=== PATIENT | female | born 1950 | race Caucasian/White ===

== ENCOUNTER 2022-03-28 09:23 | Emergency (ER) | payer MEDICARE ==
[~2022-03-28] VITALS: Ht 165.1 cm; Wt 70.3 kg
[2022-03-28 10:24] LABS: BASOPHILS ABSOLUTE AUTO 0.04 K/mm3 (0.00-0.23); BASOPHILS PERCENT AUTO 0 % (0-2); EOSINOPHILS ABSOLUTE AUTO 0.01 K/mm3 (0.00-0.68); EOSINOPHILS PERCENT AUTO 0 % (0-6); Hemoglobin 10.1 g/dL (11.5-16.0); IMMATURE GRAN ABSOLUTE AUTO 0.22 K/mm3 (0.00-0.10); IMMATURE GRAN PERCENT AUTO 2 % (0-1); LYMPHOCYTES ABSOLUTE AUTO 0.62 K/mm3 (0.84-5.20); LYMPHOCYTES PERCENT AUTO 4 % (21-46); MONOCYTES ABSOLUTE AUTO 1.36 K/mm3 (0.16-1.47); MONOCYTES PERCENT AUTO 10 % (4-13); Mean Corpuscular HGB 30.1 pg (26.0-34.0); Mean Corpuscular HGB Conc 33.7 g/dL (31.5-36.5); Mean Corpuscular Volume 89 fL (80-100); Mean Platelet Volume 11.1 fL (9.1-12.4); NEUTROPHILS ABSOLUTE AUTO 11.79 K/mm3 (1.96-9.15); NEUTROPHILS PERCENT AUTO 84 % (41-73); Platelet Count 372 K/mm3 (150-400); RDW Coefficient Variation 17.4 % (11.7-14.2); RDW Standard Deviation 56.6 fL (35.1-46.3); Red Blood Cell Count 3.36 M/mm3 (3.80-5.20); White Blood Cell Count 14.04 K/mm3 (4.00-11.30)
[2022-03-28 10:43] LABS: Albumin, Blood 1.8 g/dL (3.4-5.0); Albumin/Globulin Ratio 0.3 (0.8-1.8); Bilirubin, Direct 4.1 mg/dL (0.0-0.3); Bilirubin, Indirect 0.8 mg/dL (0.1-0.7); Bilirubin, Total 4.9 mg/dL (0.1-1.0); Bun/Creatinine Ratio 22.6 (12.0-20.0); Calcium, Blood 8.8 mg/dL (8.5-10.1); Creatinine, Blood 0.58 mg/dL (0.40-1.00); Globulin, Blood 5.2 g/dL (2.2-4.0); Potassium, Blood 4.1 mmol/L (3.5-5.5)
== END 2022-03-28 12:33 | disposition home or self-care (01) ==
LOC: ER 09:23
PROVIDERS: Physician Assistant
DX: R10.11 Right upper quadrant pain (principal); C22.9 Malignant neoplasm of liver, not specified as primary or secondary; Z88.8 Allergy status to other drugs, medicaments and biological substances
CPT/HCPCS: 36415; 80048; 80076; 83690; 85025; J1170

== ENCOUNTER 2022-04-16 13:34 | Observation (INO) | payer MEDICARE ==
[~2022-04-16] VITALS: Ht 165.1 cm; Wt 74.8 kg
[~2022-04-16 13:34] MED LIST: CEFD300 PO
[2022-04-16 14:28] LABS: Albumin, Blood 1.5 g/dL (3.4-5.0); Albumin/Globulin Ratio 0.3 (0.8-1.8); Bilirubin, Total 4.1 mg/dL (0.1-1.0); Calcium, Blood 8.5 mg/dL (8.5-10.1); Creatinine, Blood 0.75 mg/dL (0.40-1.00); Globulin, Blood 4.9 g/dL (2.2-4.0); Potassium, Blood 4.1 mmol/L (3.5-5.5); Total Protein, Blood 6.4 g/dL (6.4-8.2)
[2022-04-16 14:34] LABS: BASOPHILS ABSOLUTE AUTO 0.06 K/mm3 (0.00-0.23); BASOPHILS PERCENT AUTO 0 % (0-2); EOSINOPHILS ABSOLUTE AUTO 0.11 K/mm3 (0.00-0.68); EOSINOPHILS PERCENT AUTO 1 % (0-6); Hematocrit 32.3 % (33.0-51.0); Hemoglobin 10.2 g/dL (11.5-16.0); IMMATURE GRAN PERCENT AUTO 1 % (0-1); LYMPHOCYTES PERCENT AUTO 9 % (21-46); MONOCYTES PERCENT AUTO 8 % (4-13); Mean Corpuscular HGB Conc 31.6 g/dL (31.5-36.5); Mean Corpuscular Volume 95 fL (80-100); Mean Platelet Volume 10.8 fL (9.1-12.4); NEUTROPHILS PERCENT AUTO 81 % (41-73); Platelet Count 481 K/mm3 (150-400); RDW Coefficient Variation 22.6 % (11.7-14.2)
[2022-04-16 14:53] LABS: IMMATURE GRAN ABSOLUTE AUTO 0.16 K/mm3 (0.00-0.10); LYMPHOCYTES ABSOLUTE AUTO 1.17 K/mm3 (0.84-5.20); MONOCYTES ABSOLUTE AUTO 1.06 K/mm3 (0.16-1.47); NEUTROPHILS ABSOLUTE AUTO 11.16 K/mm3 (1.96-9.15)
[2022-04-16 20:15] LABS: Base Excess Venous -1.1 mmol/L; Bicarbonate Venous 22.9 mmol/L (24.0-30.0); PCO2 Venous 48.2 mmHg (38-42); pH Blood Venous 7.32 (7.34-7.37)
[2022-04-16 20:37] LABS: Source, Urine Straight Cath
[2022-04-16 20:46] LABS: Blood, Urine Neg (Neg); Glucose Qualitative, Urine Neg (Neg); Ketones, Urine 1+ (Neg); Leukocyte Esterase, Urine 1+ (Neg); Nitrite, Urine Neg (Neg); Protein, Urine 2+ (Neg); Specific Gravity, Urine 1.015 (1.003-1.022); Urobilinogen, Urine 3+ (Normal)
[2022-04-16 20:46] LABS: Influenza A, PCR NEGATIVE (NEGATIVE); Influenza B, PCR NEGATIVE (NEGATIVE); Resp Syncytial Virus, PCR NEGATIVE (NEGATIVE); SARS-Cov-2 (COVID-19) PCR, MMC NEGATIVE (NEGATIVE)
[2022-04-16 20:56] LABS: Appearance, Urine Hazy (Clear); Bilirubin, Urine 2+ (Neg); Color, Urine Amber (P-Yellow)
[2022-04-16 20:58] LABS: Amorphous Light (0-Heavy); Bacteria Many /hpf; Hyaline Casts 0-2 /lpf (0-2); Mucus Light (0-Heavy); Red Blood Cells, Urine 0-2 /hpf (0-2); Squamous Epithelial Cells Rare /hpf (Few); Transitional Epithelial Cells Rare /hpf (0-Rare); White Blood Cells, Urine 0-2 /hpf (0-5)
[2022-04-16 21:03] LABS: Thyroid Stimulating Hormone 3.64 uIU/mL (0.360-4.800)
[2022-04-16 21:07] LABS: Magnesium, Blood 2.2 mg/dL (1.6-2.4)
[2022-04-17 00:57] VITALS: BP 93/60
[2022-04-17 03:39] VITALS: BP 107/61
[2022-04-17 04:58] LABS: Hematocrit 27.8 % (33.0-51.0); Hemoglobin 9.1 g/dL (11.5-16.0); Mean Corpuscular HGB 30.4 pg (26.0-34.0); Mean Corpuscular HGB Conc 32.7 g/dL (31.5-36.5); Mean Corpuscular Volume 93 fL (80-100); Mean Platelet Volume 11.4 fL (9.1-12.4); Platelet Count 374 K/mm3 (150-400); RDW Coefficient Variation 22.3 % (11.7-14.2); RDW Standard Deviation 73.3 fL (35.1-46.3); Red Blood Cell Count 2.99 M/mm3 (3.80-5.20); White Blood Cell Count 10.83 K/mm3 (4.00-11.30)
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
[2022-04-17 05:43] LABS: Source, Urine Voided
[2022-04-17 05:58] LABS: Appearance, Urine Clear (Clear); Blood, Urine Neg (Neg); Color, Urine Yellow (P-Yellow); Glucose Qualitative, Urine Neg (Neg); Ketones, Urine Neg (Neg); Leukocyte Esterase, Urine 1+ (Neg); Nitrite, Urine Neg (Neg); Protein, Urine 2+ (Neg); Urobilinogen, Urine 2+ (Normal)
[2022-04-17 06:54] LABS: Bilirubin, Urine 2+ (Neg)
[2022-04-17 06:57] LABS: Bun/Creatinine Ratio 30.5 (12.0-20.0); Calcium, Blood 8.3 mg/dL (8.5-10.1); Creatinine, Blood 0.72 mg/dL (0.40-1.00); Potassium, Blood 4.2 mmol/L (3.5-5.5)
[2022-04-17 06:59] LABS: Bacteria Not Seen /hpf; Mucus Light (0-Heavy); Red Blood Cells, Urine Not Seen /hpf (0-2); Squamous Epithelial Cells Few /hpf (Few); White Blood Cells, Urine 0-2 /hpf (0-5)
[2022-04-17 08:15] VITALS: BP 107/57
[2022-04-17] MEDS ORDERED: GABA400 PO (10:30)
[2022-04-17] MEDS ORDERED: CYCL10 PO (10:31)
[2022-04-17] MEDS ORDERED: ATEN25 PO (10:33)
[2022-04-17] MEDS ORDERED: AMLO5 PO (10:36)
[2022-04-17] MEDS ORDERED: ATOR40TA PO (10:36)
[2022-04-17] MEDS ORDERED: Oxybutynin Chlo10 MG PO (10:37)
[2022-04-17] MEDS ORDERED: MORP30ER PO (10:37)
[2022-04-17] MEDS ORDERED: OXYC5 PO (10:38)
[2022-04-17] MEDS ORDERED: ONDA4 PO (10:55)
[2022-04-17] MEDS ORDERED: GABA100 PO (11:01)
[2022-04-17 15:14] VITALS: BP 98/51
--- NOTE | 2022-04-17 15:20 | NUR ---
Pt visit earlier this afternoon. Pt resting in bed and is A&OX4. Listened as Pt reports having liver cancer and states cancer is not curative. Plan is to see Dr Syed for Immuno therapy. She reports living at home alone but family is over most of the time assisting with needs. Son reports Pt has times where she doesn't require much assistance and times when she needs help with standing up getting to wheel chair. Pt's grandson, son, daughter in law at bedside. Pt's daughter on speaker via family cell phone. Answered questions regarding Advanced Illness Management Program. Offered therapeutic conversation and validated concerns. Pt and family agreeable for AIM program. Discussed code status wishes. Educated on life sustaining measures including risk factors and implications of CPR. Pt reports wishes are for full code. Family expresses appreciation and report no other concerns at this time. Spoke with RN Arcenio Rouse and relayed Pt's wishes for AIM program. Palliative Care will remain available
--- NOTE | 2022-04-17 15:21 | NUR ---
Spiritual care visit conducted. I visited with the family and patient several times this day. I met with patient's son, RICK out in the lobby for over 30 minutes. He talked about the loved ones that he has loss, the beautiful relationship he has with his mother and the depth of character, kindness and generosity that she possesses. We talked about how he is processing her new diagnosis and his thoughts on anglican, family and life. I then return later to patient's and talk with the patient as we discuss a meaningful , dying and her concerns for the family. I also talk with patient family later in the hallway. I provided therapeutic listening, grief support, spiritual application counselor and prayer (on my knee holding pt's hand). Patient and family responded well and showed signs of being comforted and encouraged. I will continue to remain available to pateint and family.
--- NOTE | 2022-04-17 16:34 | NUR ---
WOUND CARE PT WITH TWO UNSTAGEABLE PI TO COCCYX. CLEANSE NS, PAT DRY, MEDIHONEY ALGINATE TO WOUND BED, COVER BORDERED FOAM. CHANGE 3X WEEK, SOILED OR DISLODGED BL HEELS BOGGY WITH SUSPECTED DEEP TISSUE INJURY TO R HEEL. PAINT DAILY WITH BETADINE, FLOAT HEELS. EGGCRATE FOR MATRESS
--- NOTE | 2022-04-17 19:22 | NUR ---
SHIFT SUMMARY FAMILY IN ROOM AT ALL TIMES WITH PT. PTS VOICE VERY QUIET AND AT TIMES HARD TO HEAR. LE'S WITH EDEMA WITH L WORSE THAN R. HEEL PROTECTORS IN PLACE AND LE'S ELEVATED ON PILLOWS. ENCOURAGED TO TURN SIDE TO SIDE TO REDUCE PRESSURE TO COCCYC. NEW ORDER MED TO COCCYX APPLIED THIS EVENING DUE TO DOZING THIS AFTERNOON. EGG CRATE APPLIED TO BED WHILE UP ON BSC. MED REC UPDATED AND FOUND PT TO TAKE OXY AND MS CONTIN ORDERED AND GIVEN. L KNEE IS VERY PAINFUL DESPITE LIDOCAINE AND PAIN MEDS. HURTS MORE WHEN BENT.
[2022-04-17 20:23] VITALS: BP 104/62
--- NOTE | 2022-04-18 03:01 | NUR ---
END OF SHIFT SUMMERY. PT ALERT AND ORIENTED BUT SLEEPY, PT HAD SIMON BUSY DAY AND WAS VERY TIRED. PTS SON AT BEDSIDE STAYING THE NIGHT WITH PT. PT MEDICATED WITH SCEDUALED PAIN MED AND SEEMS TO BE RESTING WELL. PT S FAMILY VERY SUPPORTIVE. CALL LIGHT IN REACH BED ALARM ON.
[2022-04-18 04:36] VITALS: BP 121/82
[2022-04-18 04:40] VITALS: BP 113/73
[2022-04-18 05:45] VITALS: BP 118/72
[2022-04-18 06:15] LABS: Hematocrit 32.6 % (33.0-51.0); Hemoglobin 10.7 g/dL (11.5-16.0); Mean Corpuscular HGB 30.4 pg (26.0-34.0); Mean Corpuscular HGB Conc 32.8 g/dL (31.5-36.5); Mean Corpuscular Volume 93 fL (80-100); Mean Platelet Volume 11.1 fL (9.1-12.4); Platelet Count 506 K/mm3 (150-400); RDW Coefficient Variation 23.2 % (11.7-14.2); RDW Standard Deviation 74.7 fL (35.1-46.3); Red Blood Cell Count 3.52 M/mm3 (3.80-5.20); White Blood Cell Count 11.61 K/mm3 (4.00-11.30)
[2022-04-18 06:44] LABS: Albumin, Blood 1.4 g/dL (3.4-5.0); Albumin/Globulin Ratio 0.3 (0.8-1.8); Bilirubin, Total 4.2 mg/dL (0.1-1.0); Bun/Creatinine Ratio 33.9 (12.0-20.0); Calcium, Blood 8.8 mg/dL (8.5-10.1); Creatinine, Blood 0.68 mg/dL (0.40-1.00); Globulin, Blood 5.2 g/dL (2.2-4.0); Magnesium, Blood 2.1 mg/dL (1.6-2.4); Phosphorus, Blood 2.9 mg/dL (2.5-4.9); Potassium, Blood 3.9 mmol/L (3.5-5.5); Total Protein, Blood 6.6 g/dL (6.4-8.2)
[2022-04-18 07:40] VITALS: BP 106/63
--- NOTE | 2022-04-18 11:21 | NUR ---
Pt resting in bed and appears more lethargic and weak in comparison to yesterday. Son is requesting to have a meeting. Met with son, daughter in law, and daughter in Palliative Care office. RN Arcenio Rouse also present. Reviewed plan of care and engaged in therapeutic conversation regarding goals of care. Daughter in law reports Pt told her this morning "I think I'm on my way out the door". Discussed considering hospice. Family reports being familiar with hospice philosophy. Offered therapeutic listening and answered questions. Family will discuss further among each other and then have conversation with Pt. Family will let Palliative Care know if they would like assistance with conversation. Palliative Care will remain available
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
--- NOTE | 2022-04-18 19:13 | NUR ---
SHIFT SUMMARY PT WITH DECREASED MENTATION THIS MORNING. SON AT BEDSIDE THIS MORNING AND EXPRESSED CONCERN ABOUT PTS ABDOMEN BEING MORE SWOLLEN. PALLIATIVE CARE AND ASSISTANT HVAC MECHANIC IN AND WORKED WITH PT AND FAMILY ON DECISION ON CODE STATUS AND COMFORT CARE. REPOSITIONED SEVERAL TIMES TODAY AND DOZING MOST OF THE TIME. FAMILY AT BEDSIDE THROUGH THE DAY. NO APPETITE. DRESSING INTACT.
--- NOTE | 2022-04-19 04:53 | NUR ---
SUMMARY: PATIENT ON COMFORT CARE. FAMILY AT BEDSIDE OVERNIIGHT. PÉREZ PLACED WITH 825mL OUTPUT. REPOSITIONED IN BED WHEN PATIENT WAS AWAKE PER FAMILY REQUEST. PAIN MEDS GIVEN PER EMAR. PATIENT RESTING COMFORTABLE. PATIENT VERY LETHERGIC AT THIS TIME.
--- NOTE | 2022-04-19 07:43 | NUR ---
Spiritual care visit conducted. Patient is sleeping, dtr is bedside and pt is sceduled to d/c to hospice care at home. The family requested prayer for the transition home and so I listen empathically to their concerns and provide gentle adolescent counselor and prayer. Patient's dtr voices appreciation for new insights and the prayer and stated that it was a great way to start the day.
[2022-04-19] MEDS ORDERED: MORP20L SL (09:48)
[2022-04-19] MEDS ORDERED: ATROPINE SULFATE2 M1 SL (09:48)
[2022-04-19] MEDS ORDERED: ACET500 PO (09:48)
[2022-04-19] MEDS ORDERED: Haloperidol1 MG PO (09:49)
[2022-04-19] MEDS ORDERED: ASPERFLEX1 EACH TOP (09:50)
[2022-04-19] MEDS ORDERED: Ativan1 MG PO (09:51)
[2022-04-19] MEDS ORDERED: TRANSDERM-SCOP1 EA10 TD (09:51)
[2022-04-19] MEDS ORDERED: ONDA4ODT MM (09:58)
--- NOTE | 2022-04-19 11:00 | NUR ---
DISCHARGE INSTRUCTIONS COMPLETED AND DISCUSSED WITH PTS DAUGHTER AND SON. PLANS FOR SUPERVISOR [employer] TO BE AT PTS HOUSE THIS AFTERNOON. PT WAS QUITE DROWSY FIRST THING THIS MORNING AND ROUSED MORE DAY PROGRESSED. ABLE TO SWALLOW GABAPENTIN WITH NO PROBLEM. ROXONAL GIVEN FOR PAIN AND TRANSPORTATION. UMPJAZZYA RICHARD GURNEY HERE AND TO CURB WITH ATTENDANTS. FAMILY WITH BELONGINGS.
== END 2022-04-19 10:54 | disposition hospice, home (50) ==
LOC: ER 13:34 → MEDS 13:35
PROVIDERS: Emergency Medicine; Family Medicine; Internal Medicine; ADMIT Internal Medicine
DX: G93.40 Encephalopathy, unspecified (principal); J18.9 Pneumonia, unspecified organism; Z88.8 Allergy status to other drugs, medicaments and biological substances; C22.8 Malignant neoplasm of liver, primary, unspecified as to type; L89.90 Pressure ulcer of unspecified site, unspecified stage; Z51.5 Encounter for palliative care; R78.81 Bacteremia; R53.1 Weakness; M25.562 Pain in left knee; G89.29 Other chronic pain; Z20.822 Contact with and (suspected) exposure to COVID-19
CPT/HCPCS: 0241U; 36415; 51702; 70450; 71045; 80048; 80053; 81001; 82140; 82803; 83605; 83735; 84100; 84145; 84443; 85025; 85027; 87040; 87086; 96361; 96365; 96372; 96375; 97110; 97161; 99285-25; A9270; G0378; J0696; J1650; J2405; J7060; J7120; P9612